=== PATIENT | female | born 1985 | race Caucasian/White ===

== ENCOUNTER 2017-03-30 08:59 | Emergency (ER) | payer BC, OTHER ==
[2017-03-30 09:18] VITALS: BP 111/70
--- NOTE | 2017-03-30 09:45 | UC ---
Ear Complaint HPI - HPI Summary HPI Summary: SEVERAL DAYS OF ST, COUGH AND SUBJECTIVE FEVER - ALL IMPROVED. YESTERDAY LEFT EAR PAIN AND MUFFLED HEARING. NO DRAINAGE. - History of Current Complaint Chief Complaint: UCEar Stated Complaint: EAR PAIN Time Seen by Provider: 03/30/17 09:33 Hx Obtained From: Patient Hx Last Menstrual Period: 03/24/17 Onset/Duration: Gradual Onset, Lasting Days, Still Present Severity Initially: Moderate Severity Currently: Moderate Pain Intensity: 8 Pain Scale Used: 0-10 Numeric Aggravating Factors: Nothing Alleviating Factors: Nothing Associated Signs/Symptoms: Positive: Hearing Loss, URI Symptoms. Negative: Discharge - Allergies/Home Medications Allergies/Adverse Reactions: Allergies Allergy/AdvReac Type Severity Reaction Status Date / Time No Known Allergies Allergy Verified 05/19/16 11:40 PMH/Surg Hx/FS Hx/Imm Hx Previously Healthy: Yes - Surgical History Surgical History: Yes Surgery Procedure, Year, and Place: 2014 - [facility] - ACL RECON - Family History Known Family History: Positive: Hypertension - Social History Alcohol Use: Rare Substance Use Type: None Smoking Status (MU): Never Smoked Tobacco Review of Systems Constitutional: Fever ENT: Sore Throat, Ear Ache Respiratory: Cough Cardiovascular: Negative Gastrointestinal: Negative All Other Systems Reviewed And Are Negative: Yes Physical Exam Triage Information Reviewed: Yes Appearance: Well-Appearing, No Pain Distress, Well-Nourished Vital Signs: Initial Vital Signs Temp 98.4 F 03/30/17 09:15 Pulse 99 03/30/17 09:15 Resp 17 03/30/17 09:15 BP 111/70 03/30/17 09:15 Pulse Ox 100 03/30/17 09:15 Vital Signs Reviewed: Yes Eyes: Positive: Conjunctiva Clear ENT: Positive: Hearing grossly normal, Pharynx normal, Other - RIGHT TM NORMAL. LEFT TM DULL, ERYTHEMATOUS AND BULGING SLIGHTLY Neck: Positive: Supple, Nontender, Enlarged Nodes @ - SHOTTY RIGHT SPFL CERVICAL LAD, NON TENDER Respiratory Exam: Normal Cardiovascular Exam: Normal Abdomen Description: Positive: Soft Musculoskeletal: Positive: No Edema Neurological: Positive: Alert Psychological: Positive: Age Appropriate Behavior Skin: Negative: rashes Ear Complaint Course/Dx - Differential Dx/Diagnosis Provider Diagnoses: LEFT AOM Discharge - Discharge Plan Condition: Stable Disposition: HOME Prescriptions: Amoxicillin PO (*) [Amoxicillin 500 MG CAP*] 1,000 mg PO Q12H #28 cap Patient Education Materials: Otitis Media (ED) Referrals: Susanna Echeverria PA [Primary Care Provider] - If Needed
== END 2017-03-30 09:54 | disposition home or self-care (01) ==
LOC: UCEAST 08:59
DX: H66.92 Otitis media, unspecified, left ear (principal); R50.9 Fever, unspecified; J02.9 Acute pharyngitis, unspecified; R05 Cough
CPT/HCPCS: 99212; G0463